=== PATIENT | male | born 1965 | race Hispanic/Latino ===

== ENCOUNTER → 2018-06-26 | Day surgery (SDC) | payer OTHER ==
[2018-06-23 17:00] LABS: BASOPHILS # (AUTO) 0.1 (0.0-0.1); BASOPHILS % 0.7 % (0.0-1.0); EOSINOPHILS # (AUTO) 0.2 (0.0-0.4); EOSINOPHILS % 1.6 % (0.0-6.0); HEMATOCRIT 52.9 % (38.2-49.6); HEMOGLOBIN 17.9 g/dL (14.0-18.0); LYMPHOCYTES # (AUTO) 4.5 (1.0-3.2); LYMPHOCYTES % 30.6 % (18.0-39.1); MEAN CORPUSCULAR HGB CONC 33.8 g/dL (31-35); MEAN CORPUSCULAR VOLUME 94.6 fL (81-99); MONOCYTES # (AUTO) 1.6 (0.2-0.8); MONOCYTES % 10.8 % (4.4-11.3); NEUTROPHILS # (AUTO) 8.3 (2.1-6.9); PLATELET COUNT 181 x10e3/uL (140-360); RED BLOOD COUNT 5.59 x10e6/uL (4.3-5.7); RED CELL DISTRIBUTION WIDTH 13.2 % (11.7-14.4)
[2018-06-23 17:16] LABS: ANION GAP 15.4 mmol/L (8-16); BLOOD UREA NITROGEN 18 mg/dL (7-26); BUN/CREATININE RATIO 21 (6-25); CALCIUM 9.1 mg/dL (8.4-10.2); CARBON DIOXIDE 25 mmol/L (22-29); CHLORIDE 102 mmol/L (98-107); CREATININE, SERUM 0.87 mg/dL (0.72-1.25); EST GLOMERULAR FILTRATION RATE > 60 ML/MIN (60-); GLUCOSE 85 mg/dL (74-118); POTASSIUM 4.4 mmol/L (3.5-5.1); SODIUM 138 mmol/L (136-145)
--- NOTE | 2018-06-23 17:25 | Diagnostic Imaging Report ---
EXAMINATION: PA and lateral views of the chest. COMPARISON: None CLINICAL HISTORY: Preop film DISCUSSION: Lines/tubes: None. Lungs: The lungs are well inflated and clear. There is no evidence of pneumonia or pulmonary edema. Pleura: There is no pleural effusion or pneumothorax. Heart and mediastinum: Cardiomediastinal silhouette is unremarkable. Pulmonary vasculature is normal. Bones and soft tissues: No acute bony abnormalities. IMPRESSION: No acute cardiopulmonary abnormalities. Signed by: Dr. Danny Torres M.D. on 06/23/2018 5:22 PM
[2018-06-23 18:02] LABS: EOSINOPHILS % (MANUAL) 1 % (0-7); LYMPHOCYTES % (MANUAL) 18 % (19-48); MONOCYTES % (MANUAL) 5 % (3.4-9.0); NEUTROPHILS % (MANUAL) 60 % (40-74); PLATELET ESTIMATE ADEQUATE; PLATELET MORPHOLOGY COMMENT NORMAL; RBC MORPHOLOGY COMMENT NORMAL
[~2018-06-26] MED LIST: ANITBIOTIC PO; BUPIVACAINE HCL 0.5% INJ 30 ML VIAL INJ ONE; CEFAZOLIN SOD 2 GM/D5W 50ML 50 ML IV ONE; CRESTOR10 MG; DEXAMETHASONE SOD PHOS INJ 4 MG/ML VIAL ONE; FENTANYL CITRATE/PF 100MCG/2 ML INJ ONE; KETOROLAC TROMETHAMINE 30 MG/ML VIAL ONE; LIDOCAINE HCL 2% LOCAL INJ 5 ML SDV VIAL INJ ONE; MIDAZOLAM HCL 2 MG/2 ML VIAL ONE; MULTI-VITAMIN1 EACH; MUPIROCIN 2% OINT 22 GM TUBE ONE; ONDANSETRON HCL INJ 2 MG/ML VIAL ONE; PROPOFOL IV EMULSION 10 MG/ML 20 ML VIAL ONE; SEVOFLURANE INHAL SOLN 250 ML PEN BTL ONE; TESTOSTERONE TOP
--- OUTSIDE RECORDS SUMMARY | 2018-06-26 07:15 | XMS REPORT ---
Author Author 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 Allergies, Adverse Reactions, Alerts This patient has no known allergies or adverse reactions. Medications This patient has no known medications. Results Test Description Test Time Test Comments Text Results Atomic Results Result Comments CHEST 2 VIEWS 2018-06-23 17:21:00 [place] [address] Patient Name: ANG DE LA CRUZ MR #: [id number] : 1965 Age/Sex: 53/M Req #: [id number] Adm Physician: Ordered by: GERSON MORALES DPM Report #: [id number] Location: OR Room/Bed: Procedure: [id number] DX/CHEST 2 VIEWS Exam Date: Exam Time: REPORT STATUS: Signed EXAMINATION: PA and lateral views of the chest. COMPARISON: None CLINICAL HISTORY: Preop film DISCUSSION: Lines/tubes: None. Lungs: The lungs are well inflated and clear. There is no evidence of pneumonia or pulmonary edema. Pleura: There is no pleural effusion or pneumothorax. Heart and mediastinum: Cardiomediastinal silhouette is unremarkable. Pulmonary vasculature is normal. Bones and soft tissues: No acute bony abnormalities. IMPRESSION: No acute cardiopulmonary abnormalities. Signed by: Dr. Jenny Lama M.D. on 06/23/2018 5:22 PM Dictated By: JENNY LAMA MD 21 Transcribed By: NICOLÁS on 06/23/181721 COPY TO: GERSON MORALES DPM
[2018-06-26 10:13] LABS: BASOPHILS # (AUTO) 0.1 (0.0-0.1); BASOPHILS % 0.7 % (0.0-1.0); EOSINOPHILS # (AUTO) 0.3 (0.0-0.4); EOSINOPHILS % 2.7 % (0.0-6.0); HEMATOCRIT 47.3 % (38.2-49.6); HEMOGLOBIN 15.8 g/dL (14.0-18.0); LYMPHOCYTES # (AUTO) 4.1 (1.0-3.2); LYMPHOCYTES % 37.7 % (18.0-39.1); MEAN CORPUSCULAR HEMOGLOBIN 31.3 pg (28-32); MEAN CORPUSCULAR HGB CONC 33.4 g/dL (31-35); MEAN CORPUSCULAR VOLUME 93.8 fL (81-99); MONOCYTES # (AUTO) 1.1 (0.2-0.8); MONOCYTES % 10.6 % (4.4-11.3); NEUTROPHILS # (AUTO) 5.1 (2.1-6.9); NEUTROPHILS % 47.4 % (38.7-80.0); PLATELET COUNT 174 x10e3/uL (140-360); RED BLOOD COUNT 5.04 x10e6/uL (4.3-5.7); RED CELL DISTRIBUTION WIDTH 13.3 % (11.7-14.4)
[2018-06-26 12:30] VITALS: BP 118/71
--- NOTE | 2018-06-29 19:48 | Operative Report ---
DATE OF PROCEDURE: June 26, 2018 PREOPERATIVE DIAGNOSIS: Plantar fasciitis, plantar calcaneal spur, right foot. 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 POSTOPERATIVE DIAGNOSIS: Plantar fasciitis, plantar calcaneal spur, right foot. 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 TITLE OF OPERATION: 1. Endoscopic plantar fasciotomy of the right foot. 2. Holder bunionectomy of the right foot with Cartiva implant, right foot. ANESTHESIA: General endotracheal. HEMOSTASIS: Right thigh tourniquet at 350 mmHg. PROCEDURE IN DETAIL: The patient was taken to the operating room in a mildly sedated state and placed upon the operating table in the supine position. Following induction of general anesthetic, the right lower extremity is elevated to 60 degrees to exsanguinate before inflating the pneumatic thigh tourniquet to 350 mmHg for hemostasis. Right lower extremity placed on the operating table prior to performing the following procedure. Procedure #1 is endoscopic plantar fasciotomy of the right foot. Medial stab incision was placed and the plantar fascia was identified through cannula. Utilizing an endoscope and hook knife the medial band of plantar fascia was elongated the appropriate length where the central and lateral aspect were left preserved. The fascia itself having been thus elongated, the muscle belly was identified through the endoscope. The area was irrigated with copious amounts of sterile saline solution. Both medial entrance wound and lateral exit wound were closed with 4-0 nylon. Areas of surgery were blocked with 0.5 Marcaine and Decadron [place]. Attention was directed to the 1st metatarsophalangeal joint of the right foot. A Holder bunionectomy with Cartiva implant of the right foot. An approximate 6 cm dorsal linear incision was made overlying dorsomedial aspect of the 1st metatarsophalangeal joint of the right foot. The incision was deepened via sharp and blunt dissection down to the level of the dorsal prominent 1st metatarsal head. The head was noted to be void of natural cartilage having only [id number] articulation. Dorsal eminence as well as the base of proximal phalanx were both remodeled utilizing oscillating saw and rotary bur. Conjoined tendon of the adductor hallucis muscle was identified and tenotomized. The underlying tissue was freed with a McGlamry elevator and the head of 1st metatarsal was noted to be nonviable and delivered in the surgical site. An implant with Cartiva was then performed with 4 mm reamer and implantation of Cartiva device utilizing standard technique and applicator. That having been accomplished, the area was irrigated with copious amounts of sterile saline solution. The Cartiva implant was left proud to serve as a joint space. The area was irrigated with copious amounts of sterile saline solution and deep closure with 3-0 Vicryl, subcutaneous closure 4-0 Vicryl and skin closure 4-0 nylon. The areas of surgery were blocked with 0.5 Marcaine and Decadron LA. The appropriate mildly compressive dressings were applied and the release of the pneumatic thigh tourniquet showed a normal hyperemic flush to all digits of the right foot and patient left the operating room, vital signs stable and in apparent satisfactory condition having tolerating both the anesthetic and the procedure very well. Job#: [id number]
== END | disposition home or self-care (01) ==
LOC: OR 07:12
PROVIDERS: ATTEND Podiatrist Foot Surgery
DX: M20.11 Hallux valgus (acquired), right foot (principal); M72.2 Plantar fascial fibromatosis; M77.31 Calcaneal spur, right foot; M19.071 Primary osteoarthritis, right ankle and foot; F17.210 Nicotine dependence, cigarettes, uncomplicated; Z01.810 Encounter for preprocedural cardiovascular examination; Z01.812 Encounter for preprocedural laboratory examination; Z01.818 Encounter for other preprocedural examination
CPT/HCPCS: 28291; 29893; 36415 ×2; 71046; 80048; 85025 ×2; 93005; C1713; J0690; J1100; J1885; J2001; J2250; J2405; J2704; Q4100; 76000